=== PATIENT | male | born 1995 | race Caucasian/White ===

== ENCOUNTER 2017-07-07 09:49 | Emergency (ER) | payer MEDICAID ==
[~2017-07-07] VITALS: Ht 177.8 cm; Wt 80.0 kg
[2017-07-07] MEDS ORDERED: MORPHINE SULFATE 4 MG/ML CPJ (NOT FOR IM USE) IV ONE (10:45)
[2017-07-07] MEDS ORDERED: ONDANSETRON HCL 4MG/2ML VIAL IV ONE (10:45)
[2017-07-07 11:23] LABS: CLARITY URINE CLEAR (CLEAR); COLOR URINE YELLOW (YELLOW); GLUCOSE URINE NEGATIVE (NEGATIVE); KETONES URINE NEGATIVE (NEGATIVE); LEUKOCYTE ESTERASE URINE NEGATIVE (NEGATIVE); NITRITE URINE NEGATIVE (NEGATIVE); OCCULT BLOOD URINE NEGATIVE (NEGATIVE); PH URINE 6.5 (4.5-8.0); PROTEIN URINE NEGATIVE (NEGATIVE); SPECIFIC GRAVITY URINE 1.015 (1.005-1.030); UROBILINOGEN URINE 0.2 E.U./dL (0.2-1.0)
[2017-07-07] MEDS ORDERED: LEVOFLOXACIN 500MG TABLET PO ONE (13:15)
[2017-07-07 13:22] VITALS: BP 131/76
[2017-07-11 04:17] LABS: CHLAMYDIA TRACHOMATIS NAA Negative (Negative); NEISSERIA GONORRHOEAE NAA Negative (Negative)
== END 2017-07-07 13:33 | disposition home or self-care (01) ==
LOC: ER 09:49
DX: N45.3 Epididymo-orchitis (principal)
CPT/HCPCS: 76870; 81003; 87086; 87491; 87591; 93976; 96374; 96375; 99285; J2270; J2405; Z7610